=== PATIENT | male | born 1970 | race Two or more races ===

== ENCOUNTER 2019-03-22 08:56 | Emergency (ER) | payer SELFPAY ==
[~2019-03-22] VITALS: Ht 170.2 cm; Wt 89.8 kg
--- NOTE | 2019-03-22 09:07 | NUR ---
ED Nurse Note: Pt walked in from home c/o upper abdominal pain 10/10 that radiates down to his lower abdomen. Pt is visibly shakey and anxious. A+Ox4, denies SOB. Respirations even and unlabored on room air. Pt put on monitor; bp elevated at 170/90. Pt complaining of mild headache as well. All other vital signs stable as documented. IV inserted and blood drawn. Urine and blood sent to lab.
[2019-03-22 09:10] VITALS: BP 175/90
--- NOTE | 2019-03-22 09:10 | Emergency Room Report ---
History of Present Illness General Chief Complaint: Abdominal Pain Source: Patient Present Illness HPI Patient presents with complaints of palpitations and epigastric abdominal pain reports that started last night around 1:00 After taking some medication for his stomach he was able to sleep however this morning on his way to work he started feeling 'shaky' Denies any vomiting denies any diarrhea Pain is fairly well localized to the epigastric area Questionable subjective fever was documented reported by the patient denies any recent travel Denies any rash Denies any chest pain Allergies: Coded Allergies: No Known Allergies (Unverified , 03/22/19) Patient History Past Medical History: see triage record Reviewed Nursing Documentation: PMH: Agreed; PSxH: Agreed Nursing Documentation-PMH Past Medical History: No Stated History Review of Systems All Other Systems: negative except mentioned in HPI Physical Exam Vital Signs Date Time Temp Pulse Resp B/P (MAP) Pulse Ox O2 Delivery O2 Flow Rate FiO2 03/22/19 09:02 98.1 143 30 168/107 (127) 98 Room Air Sp02 EP Interpretation: reviewed, normal General Appearance: mild distress - Appears uncomfortable in mild pain Head: normocephalic, atraumatic Eyes: bilateral eye PERRL, bilateral eye EOMI ENT: hearing grossly normal, normal pharynx, TMs + canals normal, uvula midline Neck: full range of motion, supple, no meningismus, no bony tend Respiratory: lungs clear, normal breath sounds, no rhonchi, no respiratory distress, no retraction, no accessory muscle use Cardiovascular #1: normal peripheral pulses, no edema, no gallop, no JVD, no murmur, tachycardia Gastrointestinal: normal bowel sounds, non tender - On palpation however subjectively points to epigastric region, soft, no mass, no organomegaly, non- distended, no guarding, no hernia, no pulsatile mass, no rebound Genitourinary: no CVA tenderness Musculoskeletal: normal inspection Neurologic: motor strength/tone normal, communications tech III-XII nml as tested, oriented x3 , sensory intact, responsive Psychiatric: mood/affect normal Skin: no rash Lymphatic: normal inspection, no adenopathy Medical Decision Making Diagnostic Impression: Primary Impression: Abdominal pain ER Course With the history exam and presentation, multiple differentials considered, including but not limited to appendicitis, gastritis, cholecystitis, diverticulitis Patient also presents tachycardic and consideration for bowel perforation is made other differential such as alcohol withdrawal However the patient denies consistent alcohol abuse After initial work-up patient remained somewhat tachycardic however improved At this time patient is refusing CAT scan imaging or chest x-ray He is aware that not obtaining these examinations can lead to missed diagnoses and possible patient has full decision-making capacity And is leaving AGAINST MEDICAL ADVICE Labs Test 03/22/19 09:00 03/22/19 09:04 White Blood Count 3.7 K/UL (4.8-10.8) Red Blood Count 5.73 M/UL (4.70-6.10) Hemoglobin 16.4 G/DL (14.2-18.0) Hematocrit 48.3 % (42.0-52.0) Mean Corpuscular Volume 84 FL (80-99) Mean Corpuscular Hemoglobin 28.6 PG (27.0-31.0) Mean Corpuscular Hemoglobin Concent 33.9 G/DL (32.0-36.0) Red Cell Distribution Width 12.0 % (11.6-14.8) Platelet Count 233 K/UL (150-450) Mean Platelet Volume 6.3 FL (6.5-10.1) Neutrophils (%) (Auto) 69.5 % (45.0-75.0) Lymphocytes (%) (Auto) 28.4 % (20.0-45.0) Monocytes (%) (Auto) 1.0 % (1.0-10.0) Eosinophils (%) (Auto) 0.0 % (0.0-3.0) Basophils (%) (Auto) 1.1 % (0.0-2.0) Urine Color Yellow Urine Appearance Clear Urine pH 6 (4.5-8.0) Urine Specific [place] 1.020 (1.005-1.035) Urine Protein 3+ (NEGATIVE) Urine Glucose (UA) Negative (NEGATIVE) Urine Ketones Negative (NEGATIVE) Urine Blood 2+ (NEGATIVE) Urine Nitrite Negative (NEGATIVE) Urine Bilirubin Negative (NEGATIVE) Urine Urobilinogen Normal MG/DL (0.0-1.0) Urine Leukocyte Esterase Negative (NEGATIVE) Urine RBC 2-4 /HPF (0 - 0) Urine WBC 0 /HPF (0 - 0) Urine Squamous Epithelial Cells Occasional /LPF Urine Bacteria Occasional /HPF (NONE) Urine Mucus Occasional /LPF Sodium Level 139 MMOL/L (136-145) Potassium Level 3.8 MMOL/L (3.5-5.1) Chloride Level 100 MMOL/L (98-107) Carbon Dioxide Level 24 MMOL/L (21-32) Anion Gap 15 mmol/L (5-15) Blood Urea Nitrogen 13 mg/dL (7-18) Creatinine 1.5 MG/DL (0.55-1.30) Estimat Glomerular Filtration Rate 50.4 mL/min (>60) Glucose Level 119 MG/DL (74-106) Calcium Level 8.9 MG/DL (8.5-10.1) Total Bilirubin 1.4 MG/DL (0.2-1.0) Direct Bilirubin 0.3 MG/DL (0.0-0.3) Aspartate Amino Transf (AST/SGOT) 34 U/L (15-37) Alanine Aminotransferase (ALT/SGPT) 63 U/L (12-78) Alkaline Phosphatase 95 U/L (46-116) Troponin I 0.000 ng/mL (0.000-0.056) Total Protein 8.9 G/DL (6.4-8.2) Albumin 4.2 G/DL (3.4-5.0) Globulin 4.7 g/dL Albumin/Globulin Ratio 0.9 (1.0-2.7) Lipase 132 U/L (73-393) Urine Opiates Screen Negative (NEGATIVE) Urine Barbiturates Screen Negative (NEGATIVE) Phencyclidine (PCP) Screen Negative (NEGATIVE) Urine Amphetamines Screen Negative (NEGATIVE) Urine Benzodiazepines Screen Negative (NEGATIVE) Urine Cocaine Screen Negative (NEGATIVE) Urine Marijuana (THC) Screen Negative (NEGATIVE) Serum Alcohol < 3 mg/dL Rhythm Strip Diag. Results EP Interpretation: yes Rate: 108 Rhythm: no PVC's, no ectopy, other - Sinus tach Last Vital Signs Date Time Temp Pulse Resp B/P (MAP) Pulse Ox O2 Delivery O2 Flow Rate FiO2 03/22/19 09:02 98.1 143 30 168/107 (127) 98 Room Air Status: improved Disposition: AGAINST MEDICAL ADVICE Condition: Improved Scripts Famotidine* (Pepcid 20mg tablet*) 20 Mg Tablet 20 MG ORAL DAILY, #15 TAB 0 Refills Prov: Vinny Thompson DO 03/22/19 Ondansetron (Zofran) 4 Mg Tablet 4 MG ORAL Q12HR PRN for Nausea & Vomiting, #12 TAB Prov: Vinny Thompson DO 03/22/19 Vinny Thompson DO Mar 22, 2019 09:10
[2019-03-22] MEDS ORDERED: Pantoprazole Inj IV ONE (09:15)
[2019-03-22] MEDS ORDERED: Omnipaque-300 100ml vial INJ PRN (09:15)
[2019-03-22] MEDS ORDERED: Morphine Sulfate 4mg/ml Inj (IV USE ONLY) IVP ONE (09:15)
[2019-03-22 09:28] LABS: BASOPHILS % (AUTO) 1.1 % (0.0-2.0); HEMATOCRIT 48.3 % (42.0-52.0); HEMOGLOBIN 16.4 G/DL (14.2-18.0); LYMPHOCYTES % (AUTO) 28.4 % (20.0-45.0); MEAN CORPUSCULAR VOLUME 84 FL (80-99); NEUTROPHILS % (AUTO) 69.5 % (45.0-75.0); PLATELET COUNT 233 K/UL (150-450); RED BLOOD COUNT 5.73 M/UL (4.70-6.10); WHITE BLOOD COUNT 3.7 K/UL (4.8-10.8)
[2019-03-22 09:32] LABS: APPEARANCE,URINE CLEAR; BILIRUBIN, URINE NEGATIVE (NEGATIVE); GLUCOSE, URINE (UA) NEGATIVE (NEGATIVE); KETONES,URINE NEGATIVE (NEGATIVE); LEUKOCYTE ESTERASE ,URINE NEGATIVE (NEGATIVE); NITRITE,URINE NEGATIVE (NEGATIVE); PH,URINE 6 (4.5-8.0); PROTEIN,URINE 3+ (NEGATIVE); UROBILINOGEN,URINE NORMAL MG/DL (0.0-1.0)
[2019-03-22 09:33] LABS: ANION GAP 15 mmol/L (5-15); BLOOD UREA NITROGEN 13 mg/dL (7-18); CALCIUM 8.9 MG/DL (8.5-10.1); CARBON DIOXIDE 24 MMOL/L (21-32); CHLORIDE 100 MMOL/L (98-107); CREATININE 1.5 MG/DL (0.55-1.30); POTASSIUM 3.8 MMOL/L (3.5-5.1); SODIUM 139 MMOL/L (136-145)
[2019-03-22 09:36] LABS: COLOR,URINE YELLOW
[2019-03-22 09:44] LABS: ALANINE AMINOTRANSFERASE 63 U/L (12-78); ALBUMIN 4.2 G/DL (3.4-5.0); ALBUMIN/GLOBULIN RATIO 0.9 (1.0-2.7); ALKALINE PHOSPHATASE 95 U/L (46-116); ASPARTATE AMINO TRANSFERASE 34 U/L (15-37); BILIRUBIN,TOTAL 1.4 MG/DL (0.2-1.0)
--- NOTE | 2019-03-22 09:44 | NUR ---
ED Nurse Note: Pt refusing CT. Pt wants to know the cost of the procedure. Told the patient that we don't know the marinelli, but it is important he gets this exam done to know why he is having abdominal pain. Pt refused and said he can't afford it without insurance. Made ED MD aware.
[2019-03-22] MEDS ORDERED: LORazepam Inj 2mg/ml 1ml IV ONE (09:45)
[2019-03-22 09:46] LABS: BILIRUBIN,DIRECT 0.3 MG/DL (0.0-0.3)
--- NOTE | 2019-03-22 09:59 | NUR ---
ED Nurse Note: BP now 121/75 and heart rate 121.
--- NOTE | 2019-03-22 10:05 | NUR ---
ED Nurse Note: Pt refusing CXR. EDMD @ bedside discussed risks and benefits with patient. Pt still refused CT and CXR. Radiology made aware.
[2019-03-22] MEDS ORDERED: FAMOTIDINE20 MG ORAL (10:09)
[2019-03-22] MEDS ORDERED: ZOFRAN4 M1 ORAL (10:09)
--- NOTE | 2019-03-22 10:22 | NUR ---
AMA: Pt signed AMA form d/t refusing care. Pt says he is getting insurance this week and then he will be back for his tests. Let patient know that it is important to come back into the ER if his symptoms worsen. Pt verbalizes understanding. ED MD prescribed two medications for pt upon leaving AMA. IV and wristband removed. Respirations even and unlabored on room air. Pt's pain relieved, but heart rate still 118. Copy of AMA form given to pt. Pt ambulating with steady gait accompanied by his father.
[2019-03-22 10:25] VITALS: BP 125/79
== END 2019-03-22 10:26 | disposition left against medical advice (07) ==
LOC: EMR 09:12
DX: R10.13 Epigastric pain (principal); Z53.29 Procedure and treatment not carried out because of patient's decision for other reasons
CPT/HCPCS: 36415; 80053; 80307; 81003; 82248; 83690; 84484; 85025; 93005; 96361; 96374; 96375; 99284; C9113; G0480; J2270; J2405; J7030